=== PATIENT | male | born 1980 | race Caucasian/White ===

== ENCOUNTER 2018-10-24 17:46 | Emergency (ER) | payer MEDICAID ==
[2018-10-24] MEDS: DIPHTH/TET/ACEL PERTUSS (ADULT) 0.5 ML VIAL IM* (20:03)
== END 2018-10-24 20:18 | disposition home or self-care (01) ==
LOC: FTE 17:46
DX: S01.21XA Laceration without foreign body of nose, initial encounter (principal); F17.210 Nicotine dependence, cigarettes, uncomplicated; W18.39XA Other fall on same level, initial encounter; Y92.9 Unspecified place or not applicable; Z23 Encounter for immunization
CPT/HCPCS: 12013; 90471; 90715; 99283-25

== ENCOUNTER 2018-11-12 15:07 | Emergency (ER) | payer MEDICAID | END 2018-11-12 16:58 | disposition home or self-care (01) | LOC: E/R 16:58 | DX: M25.571 Pain in right ankle and joints of right foot (principal); G89.29 Other chronic pain | CPT/HCPCS: 73610; 73610-RT; 99283-25 ==